=== PATIENT | female | born 1985 | race African-American/Black ===

== ENCOUNTER 2017-01-16 16:53 | Inpatient (IN) | payer SELFPAY ==
[~2017-01-16] VITALS: Ht 152.4 cm; Wt 123.4 kg
[2017-01-16 18:19] LABS: BASOPHIL % 0.4 % (0-2)
[2017-01-16 18:27] LABS: RED CELL DISTRIBUTION WIDTH 21.1 % (11.5-14.5)
[2017-01-16 18:32] LABS: CALCIUM 8.2 mg/dL (8.5-10.1); CARBON DIOXIDE 18.9 mmol/L (21-32); CHLORIDE SERUM 107 mmol/L (98-107); CREATININE SERUM 0.5 mg/dL (0.6-1.0); GFR1 > 60 mL/min; GLUCOSE SERUM 90 mg/dL (74-106); POTASSIUM SERUM 3.3 mmol/L (3.5-5.1); SODIUM SERUM 137 mmol/L (136-145)
[2017-01-16 18:42] LABS: ALKALINE PHOSPHATASE 310 U/L (46-116); ALT/SGPT 153 U/L (14-59); AST/SGOT 48 U/L (15-37); BILIRUBIN TOTAL 0.66 mg/dL (0.20-1.00); TOTAL PROTEIN, SERUM 7.2 g/dL (6.4-8.2)
[2017-01-16 18:43] LABS: ALBUMIN 3.2 g/dL (3.4-5.0)
[2017-01-16 18:47] LABS: PLATELET COUNT 106 x10^3mcL (130-400)
[2017-01-16 20:28] LABS: RED BLOOD CELLS 3.02 M/mm3 (4.10-5.10)
[2017-01-16] MEDS ORDERED: ASPIRIN FOR CHI81 M1 PO (22:56)
[2017-01-16] MEDS ORDERED: COUMADIN10 MG PO (22:56)
[2017-01-16] MEDS ORDERED: LASIX20 MG PO (22:57)
[2017-01-16] MEDS ORDERED: PLA75 PO (22:57)
[2017-01-16] MEDS ORDERED: COR3 PO (22:57)
[2017-01-16] MEDS ORDERED: FLE10 PO (22:58)
[2017-01-16] MEDS ORDERED: HYDROXYUREA500 MG PO (22:58)
[2017-01-16] MEDS ORDERED: NATURE'S BLEND F1 MG PO (22:58)
[2017-01-16] MEDS ORDERED: NEURONTIN800 MG PO (22:58)
[2017-01-16] MEDS ORDERED: AMBIEN10 MG PO (22:58)
[2017-01-16] MEDS ORDERED: CELEXA40 MG PO (22:59)
[2017-01-17 01:31] LABS: MAGNESIUM 1.8 mg/dL (1.8-2.4)
[2017-01-17 01:32] LABS: CHOLESTEROL/HDL RATIO 2.1
[2017-01-17 01:55] LABS: FREE T4 1.32 ng/dL (0.76-1.46); FREE THYROXINE INDEX 3.1 ug/dL (1.4-4.5)
[2017-01-17 02:22] LABS: T3 TOTAL 1.04 ng/mL
[2017-01-17 07:22] LABS: BASOPHIL % 0.5 % (0-2); PLATELET COUNT 148 x10^3mcL (130-400)
[2017-01-17 07:25] LABS: RED CELL DISTRIBUTION WIDTH 21.2 % (11.5-14.5); rbc morphology (normal/abnorm) ABNORMAL (NORMAL)
[2017-01-17 07:31] LABS: CALCIUM 7.9 mg/dL (8.5-10.1); CARBON DIOXIDE 20.9 mmol/L (21-32); CHLORIDE SERUM 109 mmol/L (98-107); CREATININE SERUM 0.5 mg/dL (0.6-1.0); GFR1 > 60 mL/min; GLUCOSE SERUM 78 mg/dL (74-106); PHOSPHOROUS 3.1 mg/dL (2.5-4.9); POTASSIUM SERUM 3.6 mmol/L (3.5-5.1); SODIUM SERUM 138 mmol/L (136-145)
[2017-01-17 22:17] VITALS: BP 149/60
[2017-01-17 22:29] VITALS: Ht 152.4 cm; Wt 123.4 kg
[2017-01-18 06:42] VITALS: BP 105/69
[2017-01-18 07:01] LABS: microscopic required? NO
[2017-01-18 07:13] LABS: CALCIUM 8.3 mg/dL (8.5-10.1); CARBON DIOXIDE 19.9 mmol/L (21-32); CHLORIDE SERUM 104 mmol/L (98-107); CREATININE SERUM 0.6 mg/dL (0.6-1.0); GFR1 > 60 mL/min; GLUCOSE SERUM 91 mg/dL (74-106); POTASSIUM SERUM 3.5 mmol/L (3.5-5.1); SODIUM SERUM 135 mmol/L (136-145)
[2017-01-18 07:15] LABS: urine erythrocyte NEGATIVE (NEGATIVE)
[2017-01-18 07:25] LABS: AMPHETAMINE QUAL UR NONE DETECTED (NEG <=1000)
[2017-01-18 07:32] LABS: BASOPHIL % 0.3 % (0-2); PLATELET COUNT 150 x10^3mcL (130-400)
[2017-01-18 07:34] LABS: RED CELL DISTRIBUTION WIDTH 20.6 % (11.5-14.5)
[2017-01-18 07:35] LABS: rbc morphology (normal/abnorm) ABNORMAL (NORMAL)
[2017-01-18 09:13] VITALS: BP 104/60
[2017-01-18] MEDS ORDERED: MSC15 PO (11:28)
[2017-01-18 12:51] VITALS: BP 94/47
== END 2017-01-18 16:59 | disposition home or self-care (01) | DRG 812 ==
LOC: ED 16:53 → DU 01-17 19:52
PROVIDERS: Emergency Medicine; ADMIT Family Medicine
DX: D57.00 Hb-SS disease with crisis, unspecified (principal); E44.0 Moderate protein-calorie malnutrition; Z68.43 Body mass index [BMI] 50.0-59.9, adult; G90.9 Disorder of the autonomic nervous system, unspecified; D64.9 Anemia, unspecified; E87.8 Other disorders of electrolyte and fluid balance, not elsewhere classified; E66.01 Morbid (severe) obesity due to excess calories; F32.9 Major depressive disorder, single episode, unspecified; I50.9 Heart failure, unspecified; M32.9 Systemic lupus erythematosus, unspecified; Z86.718 Personal history of other venous thrombosis and embolism; Z86.711 Personal history of pulmonary embolism; Z90.49 Acquired absence of other specified parts of digestive tract; Z98.890 Other specified postprocedural states; I25.2 Old myocardial infarction; Z86.73 Personal history of transient ischemic attack (TIA), and cerebral infarction without residual deficits; Z80.8 Family history of malignant neoplasm of other organs or systems; Z82.3 Family history of stroke; Z88.8 Allergy status to other drugs, medicaments and biological substances
CPT/HCPCS: 80307; 83880; 84439; 94150; J1170; J1200; J1642; J2405; J7030; Q0092